=== PATIENT | female | born 1965 ===

== ENCOUNTER 2020-05-10 07:19 | Outpatient (REF) | payer BC, SELFPAY ==
[2020-05-10 11:13] LABS: MANUAL DIFF FLAG NO
[2020-05-10 11:26] LABS: Basophils Percent Auto 0.2 % (0-2); Eosinophils Absolute Auto 0.2 X10*3/uL (0.0-0.4); Eosinophils Percent Auto 2.9 % (0-4); Hematocrit 40.4 % (37-47); Hemoglobin 13.7 g/dl (12.0-16.0); Imm Gran Abs Auto 0.02 X10*3/uL (0.00-0.03); Imm Gran Pct Auto 0.3 % (0.0-0.4); Lymphocytes Absolute Auto 2.4 X10*3/uL (1.2-4.9); Lymphocytes Percent Auto 40.8 % (20-40); Mean Corpuscular HGB Conc 33.9 g/dl (31.0-35.0); Mean Corpuscular Hemoglobin 33.3 pg (27.0-33.0); Mean Corpuscular Volume 98.1 fL (80-98); Mean Platelet Volume 9.9 fL (9.4-12.3); Monocytes Absolute Auto 0.4 X10*3/uL (0.1-1.2); Monocytes Percent Auto 5.9 % (2-11); Neutrophils Percent Auto 49.9 % (45-73); Platelet Count 298 X10*3/uL (160-400); Red Blood Count 4.12 X10*6/uL (4.20-5.50); Red Cell Distribution Width 12.3 % (11.0-16.0); White Blood Count 5.9 X10*3/uL (4.8-10.8)
[2020-05-10 11:43] LABS: Estimated Average Glucose 91 mg/dL; Hemoglobin A1c % 4.8 %
[2020-05-10 11:49] LABS: Anion Gap 17 (12-20); Blood Urea Nitrogen 12 mg/dL (9-16); Carbon Dioxide 31 mmol/L (22-29); Chloride 92 mmol/L (96-108); Cholesterol 398 mg/dL; Estimated Glomerular Filt Rate > 60; Glucose Fasting 83 mg/dL (60-99); HDL Cholesterol 101 mg/dL; LDL Cholesterol Calculated 282 mg/dl; Sodium 136 mmol/L (135-145); Triglycerides 76 mg/dL
[2020-05-10 12:02] LABS: TSH reflex Free T4 1.18 mIU/mL (0.32-4.0)
== END 2020-05-10 07:20 | disposition home or self-care (01) ==
LOC: HO.HMGCLDS 07:19
PROVIDERS: PCP Internal Medicine; Visit Provider Internal Medicine
DX: E78.9 Disorder of lipoprotein metabolism, unspecified (principal); I10 Essential (primary) hypertension; R73.01 Impaired fasting glucose; R79.89 Other specified abnormal findings of blood chemistry; Z72.0 Tobacco use
CPT/HCPCS: 36415; 80048; 80061; 83036; 84443; 85025

== ENCOUNTER 2020-08-02 07:16 | Outpatient (REF) | payer BC, SELFPAY ==
[2020-08-02 11:21] LABS: Hematocrit 39.5 % (37-47); Hemoglobin 13.6 g/dl (12.0-16.0)
[2020-08-02 12:32] LABS: Alanine Aminotransferase 116 U/L (0-31); Albumin Level 4.9 g/dL (3.5-5.0); Alkaline Phosphatase 68 U/L (39-117); Anion Gap 15 (12-20); Aspartate Amino Transferase 92 U/L (5-31); Bilirubin Direct 0.2 mg/dL (0.0-0.5); Bilirubin Total 0.4 mg/dL (0.0-1.0); Blood Urea Nitrogen 12 mg/dL (9-16); Calcium 10.1 mg/dL (8.4-10.2); Carbon Dioxide 31 mmol/L (22-29); Chloride 95 mmol/L (96-108); Cholesterol 341 mg/dL; Estimated Glomerular Filt Rate > 60; Glucose Fasting 89 mg/dL (60-99); HDL Cholesterol 105 mg/dL; LDL Cholesterol Calculated 220 mg/dl; Potassium 3.2 mmol/L (3.3-5.1); Sodium 138 mmol/L (135-145); Total Protein 7.8 g/dL (6.5-8.0); Triglycerides 80 mg/dL
== END 2020-08-02 07:17 | disposition home or self-care (01) ==
LOC: HO.HMGCLDS 07:16
PROVIDERS: PCP Internal Medicine; Visit Provider Internal Medicine
DX: R79.89 Other specified abnormal findings of blood chemistry (principal); R73.01 Impaired fasting glucose; E78.9 Disorder of lipoprotein metabolism, unspecified; I10 Essential (primary) hypertension; Z72.0 Tobacco use
CPT/HCPCS: 36415; 80048; 80061; 80076; 85014; 85018

== ENCOUNTER 2020-08-17 07:36 | Outpatient (REF) | payer BC, SELFPAY ==
[2020-08-17 13:18] LABS: Alanine Aminotransferase 64 U/L (0-31); Albumin Level 4.6 g/dL (3.5-5.0); Alkaline Phosphatase 62 U/L (39-117); Anion Gap 12 (12-20); Aspartate Amino Transferase 32 U/L (5-31); Bilirubin Direct 0.2 mg/dL (0.0-0.5); Bilirubin Total 0.7 mg/dL (0.0-1.0); Carbon Dioxide 34 mmol/L (22-29); Chloride 97 mmol/L (96-108); Potassium 3.6 mmol/L (3.3-5.1); Sodium 139 mmol/L (135-145); Total Protein 7.2 g/dL (6.5-8.0)
== END 2020-08-17 07:37 | disposition home or self-care (01) ==
LOC: HO.HMGCLDS 07:36
PROVIDERS: PCP Internal Medicine; Visit Provider Internal Medicine
DX: R79.89 Other specified abnormal findings of blood chemistry (principal); E87.8 Other disorders of electrolyte and fluid balance, not elsewhere classified
CPT/HCPCS: 36415; 80051; 80076

== ENCOUNTER → 2020-09-10 10:02 | Outpatient (REF) | payer BC, SELFPAY ==
--- NOTE | 2020-09-10 10:04 | CA_ITS ---
Transthoracic Echocardiogram Patient (Last, First, Middle): Ita Zarate M Gender: Female Date of : 1965 Age: 55 Procedure Date: 09/10/2020 Procedure Type: Transthoracic Echocardiogram Location: OP Height: 157.48 cm Weight: 76.2 kg BSA: 1.77 m2 Heart Rate: bpm BP: 136 / 80 mmHg Non Cdl Driver: NARENDRA Referring MD: Johanny Cao MD Symptoms: R01.1 - Cardiac murmur, unspecified Study Quality: Fair/contrast ECG Rhythm: Sinus Conclusions: - The left ventricular systolic function is hyperdynamic. The visually estimated ejection fraction is >70%. - There is mild mitral valve regurgitation. Findings Procedure Information Contrast agent, definity, is being given per protocol without apparent complications. Left Ventricle Normal left ventricular cavity size. There is mildly increased left ventricular wall thickness. The left ventricular systolic function is hyperdynamic. The visually estimated ejection fraction is >70%. There is no evidence of regional wall motion abnormalities. Diastolic function is normal for age. Small gradient in LVOT that increases with Valsalva, but no evidence of obstruction. Right Ventricle Normal right ventricular cavity size and systolic function. Atria The left atrium is mildly dilated. The right atrium is normal in size. Aortic Valve There is a normal trileaflet aortic valve. There is no aortic valve stenosis. There is no aortic valve regurgitation. Mitral Valve The mitral valve appears normal. There is mild mitral valve regurgitation. There is no mitral valve stenosis. Pulmonic Valve The pulmonic valve was not well visualized. Tricuspid Valve Normal tricuspid valve structure. There is trace tricuspid valve regurgitation. The pulmonary artery systolic pressure is normal. Great Vessels The aortic annulus, sinuses of valsalva, asc aorta, and aortic arch are normal in size. Venous The inferior vena cava is normal in size and collapses greater than 50% with inspiration. Pericardium/Pleural There is no evidence of pericardial effusion. Prior Study Comparison No prior study available for comparison. Measurements 2D Linear Measurements IVSd: 1.14 0.6-0.9/0.6-1.0 cm LVIDd: 3.68 3.9-5.3/4.2-5.9 cm LVIDd Index: 2.08 2.4-3.2/2.2-3.1 cm/m2 LVIDs: 2.63 2.0-3.6 cm LVPWd: 1.14 0.7-1.1 cm Ao Root: 3.20 2.1-3.5 cm LA Diam: 3.80 2.7-3.8/3.0-4.0 cm LAIDs Index: 2.15 1.5-2.3 cm/m2 LV Mass: 168.35 67-162/88-224 g LV Mass Index: 95.11 43-95/49-115 g/m2 LVOT Diam: 2.00 3.0+(-)1.3 cm 2D Systolic Function EF 4C: 68.40 >55% EF 2C: 69.70 >55% EF BiP: 67.40 >55% Mitral Valve MV Pk E: 0.88 MV PK A: 0.92 MV Decel Time: 232.00 E/A: 1.00 E'Lateral: 8.70 E'Medial: 7.25 E/E' Med: 12.10 E/E' Lat: 10.10 PHT: 68.00 MVA PHT: 3.24 Decel Hood: 3.78 Aortic Valve AoV Pk Senthil: 1.60 AoV Mn Senthil: 1.10 AoV VTI: 0.32 AoV Pk Grad: 10.00 Aov Mn Grad: 6.00 EDMUNDO Cont.VTI: 3.65 LVOT LVOT Pk Senthil: 1.47 LVOT Mn Senthil: 1.13 LVOT VTI: 0.37 LVOT Pk Grad: 9.00 LVOT Mn Grad: 6.00 LVOT Diam: 2.00 LVOT Area: 3.14 Diastolic Function MV Pk E: 0.88 MV Pk A: 0.92 E/A: 1.00 E'Medial: 7.25 E/E' Med: 12.10 E' Laterial: 8.70 E/E' Lat: 10.10 Tricuspid Valve TR Pk Senthil: 2.43 TR Pk Grad: 24.00 RA Press: 3.00 RVSP: 27.00 Great Vessels Aorta Ao Root-2D: 3.20 2.0-3.7 cm Ao Asc: 3.00 2.1-3.4 cm Ao Arch: 2.80 Updated in Other Vendor System with Status of Final Dev Peguero MD electronically signed on 09/11/2020 10:31:07 AM with status of Final
== END ==
LOC: HO.CARD 10:02
PROVIDERS: Visit Provider Internal Medicine
DX: R01.1 Cardiac murmur, unspecified (principal)
CPT/HCPCS: 93306; Q9957

== ENCOUNTER → 2021-02-21 14:23 | Outpatient (BNVA) | payer BC, SELFPAY | PROVIDERS: PCP Internal Medicine; Referring Provider Internal Medicine; Visit Provider Internal Medicine | DX: R07.2 Precordial pain (principal); R00.2 Palpitations; R09.89 Other specified symptoms and signs involving the circulatory and respiratory systems; I10 Essential (primary) hypertension | CPT/HCPCS: 93005 ==

== ENCOUNTER → 2021-04-10 07:36 | Outpatient (REF) | payer BC, SELFPAY ==
--- NOTE | ~2021-04-10 | NM_ITS ---
Myocardial perfusion study Indication: The cardial chest pain to evaluate for myocardial ischemia Technique: The patient was brought in for a Lexiscan perfusion study on 04/10/2021. Patient performed low-level exercise and was injected 0.4 mg of Lexiscan intravenously. Within a minute of injection, 25 mCi of sestamibi was given intravenously. Images were obtained using the SPECT gamma camera interlaced with the gating device. Images were obtained in supine position. Resting perfusion study was performed on 04/11/2021. Patient was administered 25 mCi of sestamibi intravenously at rest. Images were then obtained in supine position. Images obtained with and without CT attenuation. Total DLP 113 mGy-cm. Images were processed with the software and compared side to side in short axis, horizontal long axis and vertical long axis views. Findings: The stress perfusion study showed nonattenuated images show mildly reduced uptake in the basal inferior wall of the LV myocardium. Remainder of the LV myocardium is normally perfused. Attenuation corrected images show mildly reduced uptake in the apex of the LV myocardium.. The gated study shows normal LV systolic function with calculated LVEF of greater than 70 %. LV cavity is normal in size. The gated study shows normal systolic wall thickening and contraction of segments. Resting study shows no change in perfusion pattern compared to stress perfusion study. Gating at rest reveals normal systolic wall motion with ejection fraction at 70%. The findings are consistent with no reversible defect suggestive of ischemia. Likely normal myocardial perfusion. NM/NM cardiolite stress test Impression: 1. Myocardial perfusion imaging study shows likely normal myocardial perfusion 2. Gated LVEF is 70% 3. Transient ischemic dilatation not present EKG is nondiagnostic for ischemia
--- NOTE | 2021-04-10 07:40 | CA_ITS ---
Acquisition Time: 2021-04-10 07:56:49 Total Exercise Time: 00:07:31 Test Indications: CP, PALPITATIONS Medications: SEE CHART Protocol: ANEESH Max HR: 153 BPM 93% of Pred: 164 BPM Max BP: 142/080 mmHG Max Work Load: 9.3 METS Exercise stress test with exercise 7 min 31 sec of Aneesh protocol, with mild sob, no chest discomfort, with occassional PACs in stage 3, with normotensive response to exercise, with nondiagnostic EKG for ischemia due to baseline abnormality. Nuclear images pending. Test reviewed with Dr Peguero. Referred By: Dev Peguero Overread By: JOSE ROSAS
== END ==
LOC: HO.CARD 07:36
PROVIDERS: PCP Internal Medicine; Visit Provider Internal Medicine
DX: R07.2 Precordial pain (principal)
CPT/HCPCS: 78452; 93017; A9500

== ENCOUNTER → 2021-04-11 14:43 | Outpatient (REF) | payer BC, SELFPAY ==
--- NOTE | 2021-04-11 14:47 | HM_ITS ---
Total monitoring time 3 days and 14 hours. Underlying rhythm is sinus. Minimum rate 62/Min. Maximum 152/Min. Average 95/Min. No atrial fibrillation or flutter or pauses. Very rare supraventricular ectopy; longest run being 4 beats. Very rare ventricular ectopy with minimal burden. No patient events. MTDD
== END ==
LOC: HO.CARD 14:43
PROVIDERS: PCP Internal Medicine; Visit Provider Internal Medicine
DX: R00.2 Palpitations (principal)
CPT/HCPCS: 93242

== ENCOUNTER 2021-05-11 06:53 | Outpatient (REF) | payer BC, SELFPAY ==
--- NOTE | ~2021-05-11 | XR_ITS ---
EXAMINATION: XR FINGER, LEFT CLINICAL INFORMATION: Injury COMPARISON: None TECHNIQUE: Three views of the left second finger. FINDINGS: There is a fracture of the distal tuft of the left second finger. No other fracture is seen. The joint spaces are normal. Soft tissues are normal. XR/XR finger LT min 2V IMPRESSION: Fracture of the distal tuft of the left second finger.
[2021-05-11 11:17] LABS: Estimated Average Glucose 97 mg/dL
[2021-05-11 11:23] LABS: Alanine Aminotransferase 40 U/L (0-31); Albumin Level 4.7 g/dL (3.5-5.0); Alkaline Phosphatase 77 U/L (39-117); Anion Gap 14 (12-20); Aspartate Amino Transferase 32 U/L (5-31); Bilirubin Total 0.7 mg/dL (0.0-1.0); Blood Urea Nitrogen 18 mg/dL (9-16); Calcium 10.4 mg/dL (8.4-10.2); Carbon Dioxide 33 mmol/L (22-29); Chloride 98 mmol/L (96-108); Cholesterol 320 mg/dL; Estimated Glomerular Filt Rate > 60; Glucose Fasting 96 mg/dL (60-99); HDL Cholesterol 80 mg/dL; LDL Cholesterol Calculated 221 mg/dl; Potassium 4.2 mmol/L (3.3-5.1); Sodium 141 mmol/L (135-145); Total Protein 7.5 g/dL (6.5-8.0); Triglycerides 99 mg/dL
== END 2021-05-11 06:54 | disposition home or self-care (01) ==
LOC: HO.HMGCLDS 06:53
PROVIDERS: PCP Internal Medicine; Visit Provider Internal Medicine
DX: S69.92XA Unspecified injury of left wrist, hand and finger(s), initial encounter (principal); E78.9 Disorder of lipoprotein metabolism, unspecified; F17.200 Nicotine dependence, unspecified, uncomplicated; I10 Essential (primary) hypertension; I34.0 Nonrheumatic mitral (valve) insufficiency; R00.2 Palpitations; R73.01 Impaired fasting glucose; E66.09 Other obesity due to excess calories
CPT/HCPCS: 36415; 73140; 80053; 80061; 83036

== ENCOUNTER 2021-06-18 09:19 | Outpatient (REF) | payer BC, SELFPAY ==
--- NOTE | ~2021-06-18 | XR_ITS ---
EXAMINATION: XR HAND, LEFT CLINICAL INFORMATION: Pain left hand COMPARISON: None TECHNIQUE: PA, lateral, and oblique views of the left hand. FINDINGS: There is small fracture phalangeal tuft second digit with mild soft tissue swelling. There is minimal displacement. No additional fractures seen. Rest of the soft tissues are normal. XR/XR hand LT min 3V IMPRESSION: Small minimally displaced fracture phalangeal tuft second digit with mild soft tissue swelling.
== END 2021-06-18 09:20 | disposition home or self-care (01) ==
LOC: HO.HOSX 09:19
PROVIDERS: Visit Provider Orthopaedic Surgery
DX: S62.631D Displaced fracture of distal phalanx of left index finger, subsequent encounter for fracture with routine healing (principal); S69.92XD Unspecified injury of left wrist, hand and finger(s), subsequent encounter; X58.XXXD Exposure to other specified factors, subsequent encounter; Z87.891 Personal history of nicotine dependence
CPT/HCPCS: 73130

== ENCOUNTER 2021-12-21 06:37 | Outpatient (REF) | payer BC, SELFPAY ==
[2021-12-21 11:16] LABS: Estimated Average Glucose 97 mg/dL
[2021-12-21 11:36] LABS: Alanine Aminotransferase 118 U/L (0-31); Albumin Level 4.7 g/dL (3.5-5.0); Alkaline Phosphatase 98 U/L (39-117); Anion Gap 17 (12-20); Aspartate Amino Transferase 109 U/L (5-31); Bilirubin Total 0.3 mg/dL (0.0-1.0); Blood Urea Nitrogen 10 mg/dL (9-16); Carbon Dioxide 28 mmol/L (22-29); Chloride 89 mmol/L (96-108); Estimated Glomerular Filt Rate > 60; Glucose Fasting 95 mg/dL (60-99); Lipase 21 U/L (8-78); Potassium 3.2 mmol/L (3.3-5.1); Sodium 131 mmol/L (135-145); Total Protein 7.6 g/dL (6.5-8.0)
[2021-12-21 11:39] LABS: TSH reflex Free T4 1.18 uIU/mL (0.32-4.0)
== END 2021-12-21 06:38 | disposition home or self-care (01) ==
LOC: HO.HMGCLDS 06:37
PROVIDERS: PCP Internal Medicine; Visit Provider Internal Medicine
DX: I10 Essential (primary) hypertension (principal); R73.01 Impaired fasting glucose; R79.89 Other specified abnormal findings of blood chemistry; E66.09 Other obesity due to excess calories; E78.9 Disorder of lipoprotein metabolism, unspecified
CPT/HCPCS: 36415; 80053; 83036; 83690; 84443

== ENCOUNTER 2022-02-24 06:40 | Outpatient (REF) | payer BC, SELFPAY ==
[2022-02-24 11:41] LABS: Estimated Average Glucose 103 mg/dL; Hemoglobin A1c % 5.2 %
[2022-02-24 12:02] LABS: Alanine Aminotransferase 30 U/L (0-31); Albumin Level 4.2 g/dL (3.5-5.0); Alkaline Phosphatase 66 U/L (39-117); Anion Gap 14 (12-20); Aspartate Amino Transferase 24 U/L (5-31); Bilirubin Total 0.3 mg/dL (0.0-1.0); Blood Urea Nitrogen 16 mg/dL (9-16); Calcium 9.6 mg/dL (8.4-10.2); Carbon Dioxide 29 mmol/L (22-29); Chloride 102 mmol/L (96-108); Estimated Glomerular Filt Rate > 60; Glucose Random 107 mg/dL (60-115); Potassium 3.6 mmol/L (3.3-5.1); Sodium 141 mmol/L (135-145); Total Protein 6.6 g/dL (6.5-8.0)
== END 2022-02-24 06:41 | disposition home or self-care (01) ==
LOC: HO.HMGCLDS 06:40
PROVIDERS: PCP Internal Medicine; Visit Provider Internal Medicine
DX: E78.9 Disorder of lipoprotein metabolism, unspecified (principal); R73.01 Impaired fasting glucose; I10 Essential (primary) hypertension; R79.89 Other specified abnormal findings of blood chemistry; E87.8 Other disorders of electrolyte and fluid balance, not elsewhere classified
CPT/HCPCS: 36415; 80053; 83036

== ENCOUNTER 2022-09-22 06:39 | Outpatient (REF) | payer BC, SELFPAY ==
[2022-09-22 11:46] LABS: Estimated Average Glucose 97 mg/dL
[2022-09-22 12:07] LABS: Alanine Aminotransferase 36 U/L (0-31); Albumin Level 4.6 g/dL (3.5-5.0); Alkaline Phosphatase 94 U/L (39-117); Anion Gap 14 (12-20); Aspartate Amino Transferase 29 U/L (5-31); Bilirubin Total 0.6 mg/dL (0.0-1.0); Blood Urea Nitrogen 14 mg/dL (9-16); Calcium 9.9 mg/dL (8.4-10.2); Carbon Dioxide 31 mmol/L (22-29); Chloride 97 mmol/L (96-108); Estimated Glomerular Filt Rate > 60; Glucose Random 96 mg/dL (60-115); Potassium 3.5 mmol/L (3.3-5.1); Sodium 138 mmol/L (135-145); Total Protein 7.2 g/dL (6.5-8.0)
== END 2022-09-22 06:40 | disposition home or self-care (01) ==
LOC: HO.HMGCLDS 06:39
PROVIDERS: PCP Internal Medicine; Visit Provider Internal Medicine
DX: E78.9 Disorder of lipoprotein metabolism, unspecified (principal); R73.01 Impaired fasting glucose; R79.89 Other specified abnormal findings of blood chemistry; I10 Essential (primary) hypertension
CPT/HCPCS: 36415; 80053; 83036

== ENCOUNTER 2023-02-04 15:54 | Outpatient (AMB) | payer BC, SELFPAY ==
--- NOTE | 2023-02-04 15:56 | MHC.PC.OV ---
Vital Signs 02/04/23 15:57 Height 5 ft 2 in Weight 177 lb 8 oz BMI 32.5 BP 144/72 H Blood Pressure Location Rt brachial Position Sitting Pulse 94 Pulse Source Pulse Oximeter Pulse Oximetry (%) 97 Oxygen Delivery Method Room Air Intake Visit Reasons: 4 month follow up Allergies No Known Allergies [No Known Allergies*] Allergy (Verified 10/01/22 15:52) Medication List - Last Reconciled 02/04/23 by Johanny Cao MD amlodipine 5 mg PO DAILY 90 days lisinopril-hydrochlorothiazide 20-25 mg 1 tab PO DAILY 90 days Tobacco use date assessed: 02/04/23 Dental Screening Dental Screen Date: 02/04/23 Did you have a dental visit in the last 12 months?: No Did you have a dental problem in the last 6 months where you did not have access to dental care?: No Was dental information given to patient?: No HPI 4 month follow up HPI Details Patient is a 57-year-old female came in today for follow-up appointment due for labs ETOH score 4, once again advice pt to cut down Offers no new complaints taking all her medications no side effects Blood pressure is well controlled, she is to continue lisinopril hydrochlorothiazide 20-25 mg , and amlodipine 5 mg She also take atorvastatin 40 mg for lipid control LFT stable Follow-up 4 months [facility] Medical History Heart murmur Hypertension, essential Impaired fasting blood sugar LFT elevation Lipid disorder Surgical History No pertinent past surgical history Family History Father HTN (hypertension) Brain aneurysm Mother HTN (hypertension) COPD (chronic obstructive pulmonary disease) Maternal Grandfather No problems noted. Maternal Grandmother No problems noted. Paternal Grandfather No problems noted. Paternal Grandmother Kidney failure Social History Housing: Condominium Alcohol intake: current Patient Tobacco Use Status: Former Tobacco user (quit 2020) Cigarette Packs Per Day: 1 Cigarettes Per Day: 10 e-Cigarette/Vaping Use: Currently Using service: No Current occupational status: employed Cognitive needs: No Hearing needs: No Vision needs: Yes Questionnaire PHQ-9 Over the last 2 weeks, how often have you been bothered by any of the following problems? 1. Little interest or pleasure in doing things: not at all 2. Feeling down, depressed, or hopeless: not at all 3. Trouble falling or staying asleep, or sleeping too much: not at all 4. Feeling tired or having little energy: not at all 5. Poor appetite or overeating: not at all 6. Feeling bad about yourself - or that you are a failure or have let yourself or your family down: not at all 7. Trouble concentrating on things, such as reading the newspaper or watching television: not at all 8. Moving or speaking so slowly that other people could have noticed. Or the opposite - being so fidgety or restless that you have been moving around a lot more than usual: not at all 9. Thoughts that you would be better off or of hurting yourself in some way: not at all Total score: 0 Depression Screening Interpretation: Negative 41116 - PHQ-9 Billing: Yes Source: Developed by Drs. Jake Espinoza, Karma Shaw, Sanhtosh Bunch and colleagues, with an educational kevin from [employer]. Thrive Questionnaire Date Thrive assessed: 01/08/21 AUDIT C Alcohol Use Questionnaire (AUDIT-C) 1. How often do you have a drink containing alcohol?: 2-3 times a week 2. How many drinks containing alcohol do you have on a typical day when you are drinking?: 3 or 4 3. How often do you have six or more drinks on one occasion?: Never Total Score: 4 Score Reviewed/Action Taken: Yes Review of Systems Const Denies chills and Denies fever(s) ENT Denies epistaxis and Denies nasal discharge Card Denies chest pain Resp Denies chest congestion, Denies cough and Denies hemoptysis GI Denies diarrhea and Denies nausea Skin/Breast Denies rash Neuro Reports no additional complaints Psych Reports no additional complaints Endo Reports no additional complaints Physical exam (Primary Care) Tobacco/Smoking Status: Tobacco use Status Tobacco use date assessed 06/18/22 10/01/22 15:51 Patient Tobacco Use Status Former Tobacco user 05/03/23 15:57 e-Cigarette/Vaping Use Currently Using 10/01/22 15:57 Depression Screening Interpretation: Negative Thrive Assessment: Date of Thrive Assessment Date Thrive assessed 01/08/21 10/01/22 15:51 Const General: cooperative, comfortable and no acute distress Orientation/consciousness: patient oriented x3 HENMT Head: Yes normocephalic Eyes General: appearance normal, both eyes and all related structures Neck Neck: Yes supple Resp Effort & Inspection: normal respiratory effort, no cough and no stridor Cardio Rhythm: regular rhythm Heart sounds: S1 normal heart sound present and S2 normal heart sound present Skin General skin exam: turgor normal Neuro General: patient oriented x3, tone normal and moves all extremities Extrem Right lower extremity: no edema Left lower extremity: no edema Assessment and Plan Assessment & Plan (1) Essential hypertension: Code(s): I10 - Essential (primary) hypertension (2) Lipid disorder: Code(s): E78.9 - Disorder of lipoprotein metabolism, unspecified (3) Impaired fasting blood sugar: Code(s): R73.01 - Impaired fasting glucose (4) LFT elevation: Code(s): R79.89 - Other specified abnormal findings of blood chemistry Plan Patient is a 57-year-old female came in today for follow-up appointment due for labs ETOH score 4, once again advice pt to cut down Offers no new complaints taking all her medications no side effects Blood pressure is well controlled, she is to continue lisinopril hydrochlorothiazide 20-25 mg , and amlodipine 5 mg She also take atorvastatin 40 mg for lipid control LFT stable IFS , diet control, we are monitoring it Follow-up 4 months Orders: Orders Comprehensive Met. Panel Today I10 - Essential (primary) hypertension Complete Blood Count Auto Diff Today I10 - Essential (primary) hypertension Hemoglobin A1c Today R73.01 - Impaired fasting glucose Coding Level of Care Code Est Pt Level 3 (93972) Diagnoses Essential hypertension I10 Lipid disorder E78.9 Impaired fasting blood sugar R73.01 LFT elevation R79.89
[2023-02-04 15:57] VITALS: BP 144/72; PULSE 94; O2SAT 97; BMI 32.5
== END 2023-02-04 16:14 | disposition home or self-care (01) ==
PROVIDERS: Visit Provider Internal Medicine
DX: I10 Essential (primary) hypertension (principal); E78.9 Disorder of lipoprotein metabolism, unspecified; R73.01 Impaired fasting glucose; R79.89 Other specified abnormal findings of blood chemistry
CPT/HCPCS: 99213

== ENCOUNTER 2023-06-12 14:47 | Outpatient (AMB) | payer BC, SELFPAY ==
[2023-06-12 14:53] VITALS: BP 132/70; PULSE 110; O2SAT 97; BMI 32.7
--- NOTE | 2023-06-12 14:53 | MHC.PC.OV ---
Vital Signs 06/12/23 14:53 Height 5 ft 2 in Weight 179 lb BMI 32.7 BP 132/70 Blood Pressure Location Lt brachial Position Sitting Pulse 110 H Pulse Source Pulse Oximeter Pulse Oximetry (%) 97 Oxygen Delivery Method Room Air Intake Visit Reasons: 4 month fu Allergies No Known Allergies [No Known Allergies*] Allergy (Verified 06/12/23 14:55) Medication List - Last Reconciled 06/12/23 by Johanny Cao MD amlodipine 5 mg PO DAILY 90 days lisinopril-hydrochlorothiazide 20-25 mg 1 tab PO DAILY 90 days Tobacco use date assessed: 06/12/23 Dental Screening Dental Screen Date: 06/12/23 Did you have a dental visit in the last 12 months?: Yes Did you have a dental problem in the last 6 months where you did not have access to dental care?: No Was dental information given to patient?: Patient has dentist HPI 4 month fu HPI Details Patient is a 58-year-old female came in today for follow-up appointment due for labs, patient forgot to do labs she will have them done today Offers no new complaints taking all her medications no side effects Blood pressure is well controlled, she is to continue lisinopril hydrochlorothiazide 20-25 mg , and amlodipine 5 mg She also take atorvastatin 40 mg for lipid control LFT stable IFS , diet control, we are monitoring it Follow-up 4 months [facility] Medical History LFT elevation Heart murmur Impaired fasting blood sugar Lipid disorder Hypertension, essential Surgical History No pertinent past surgical history Family History Father HTN (hypertension) Brain aneurysm Mother HTN (hypertension) COPD (chronic obstructive pulmonary disease) Maternal Grandfather No problems noted. Maternal Grandmother No problems noted. Paternal Grandfather No problems noted. Paternal Grandmother Kidney failure [facility] Alcohol intake: current Patient Tobacco Use Status: Former Tobacco user (quit 2020) Cigarette Packs Per Day: 1 Cigarettes Per Day: 10 e-Cigarette/Vaping Use: Currently Using service: No Current occupational status: employed Cognitive needs: No Hearing needs: No Vision needs: Yes Questionnaire Thrive Questionnaire Date Thrive assessed: 01/08/21 AUDIT C Alcohol Use Questionnaire (AUDIT-C) 1. How often do you have a drink containing alcohol?: 2-3 times a week 2. How many drinks containing alcohol do you have on a typical day when you are drinking?: 3 or 4 3. How often do you have six or more drinks on one occasion?: Never Total Score: 4 Score Reviewed/Action Taken: Yes Review of Systems Const Denies chills and Denies fever(s) ENT Denies epistaxis and Denies nasal discharge Card Denies chest pain Resp Denies chest congestion, Denies cough and Denies hemoptysis GI Denies diarrhea and Denies nausea Skin/Breast Denies rash Neuro Reports no additional complaints Psych Reports no additional complaints Endo Reports no additional complaints Physical exam (Primary Care) Vital Signs: Last Vital Signs Pulse 110 H 06/12/23 14:53 BP 132/70 06/12/23 14:53 Pulse Ox 97 06/12/23 14:53 Oxygen Delivery Method Room Air 06/12/23 14:53 BMI result Body Mass Index 32.7 Tobacco/Smoking Status: Tobacco use Status Tobacco use date assessed 06/12/23 06/12/23 14:56 Patient Tobacco Use Status Former Tobacco user (quit 06/12/23 14:56 2020) e-Cigarette/Vaping Use Currently Using 06/12/23 14:56 Thrive Assessment: Date of Thrive Assessment Date Thrive assessed 01/08/21 06/12/23 14:56 Const General: cooperative, comfortable and no acute distress Orientation/consciousness: patient oriented x3 HENMT Head: Yes normocephalic Eyes General: appearance normal, both eyes and all related structures Neck Neck: Yes supple Resp Effort & Inspection: normal respiratory effort, no cough and no stridor Cardio Rhythm: regular rhythm Heart sounds: S1 normal heart sound present and S2 normal heart sound present Skin General skin exam: turgor normal Neuro General: patient oriented x3, tone normal and moves all extremities Extrem Right lower extremity: no edema Left lower extremity: no edema Assessment and Plan Assessment & Plan (1) Essential hypertension: Code(s): I10 - Essential (primary) hypertension (2) Lipid disorder: Code(s): E78.9 - Disorder of lipoprotein metabolism, unspecified (3) Impaired fasting blood sugar: Code(s): R73.01 - Impaired fasting glucose (4) LFT elevation: Code(s): R79.89 - Other specified abnormal findings of blood chemistry Plan Patient is a 58-year-old female came in today for follow-up appointment due for labs, patient forgot to do labs she will have them done today Offers no new complaints taking all her medications no side effects Blood pressure is well controlled, she is to continue lisinopril hydrochlorothiazide 20-25 mg , and amlodipine 5 mg She also take atorvastatin 40 mg for lipid control LFT stable IFS , diet control, we are monitoring it Follow-up 4 months Coding Level of Care Code Est Pt Level 3 (79478) Diagnoses Essential hypertension I10 Lipid disorder E78.9 Impaired fasting blood sugar R73.01 LFT elevation R79.89
== END 2023-06-12 15:17 | disposition home or self-care (01) ==
PROVIDERS: PCP Internal Medicine; Visit Provider Internal Medicine
DX: I10 Essential (primary) hypertension (principal); E78.9 Disorder of lipoprotein metabolism, unspecified; R73.01 Impaired fasting glucose; R79.89 Other specified abnormal findings of blood chemistry
CPT/HCPCS: 99213

== ENCOUNTER 2023-06-12 15:19 | Outpatient (REF) | payer BC, SELFPAY ==
[2023-06-12 16:07] LABS: MANUAL DIFF FLAG NO
[2023-06-12 16:22] LABS: Basophils Percent Auto 0.4 % (0-2); Eosinophils Absolute Auto 0.2 X10*3/uL (0.0-0.4); Hematocrit 39.5 % (37.0-47.0); Hemoglobin 13.3 g/dl (12.0-16.0); Imm Gran Abs Auto 0.01 X10*3/uL (0.00-0.03); Imm Gran Pct Auto 0.1 % (0.0-0.4); Lymphocytes Absolute Auto 2.5 X10*3/uL (1.2-4.9); Lymphocytes Percent Auto 30.2 % (20-40); Mean Corpuscular HGB Conc 33.7 g/dl (31.0-35.0); Mean Corpuscular Hemoglobin 31.3 pg (27.0-33.0); Mean Corpuscular Volume 92.9 fL (80.0-98.0); Mean Platelet Volume 9.4 fL (9.4-12.3); Monocytes Absolute Auto 0.4 X10*3/uL (0.1-1.2); Monocytes Percent Auto 5.4 % (2-11); Neutrophils Absolute Auto 5.1 x10*3/uL (2.0-8.3); Neutrophils Percent Auto 61.9 % (45-73); Platelet Count 291 X10*3/uL (160-400); Red Blood Count 4.25 X10*6/uL (4.20-5.50); Red Cell Distribution Width 12.3 % (11.0-16.0); White Blood Count 8.2 X10*3/uL (4.8-10.8)
[2023-06-12 16:29] LABS: Estimated Average Glucose 97 mg/dL
[2023-06-12 18:35] LABS: Alanine Aminotransferase 51 U/L (0-31); Albumin Level 4.6 g/dL (3.5-5.0); Alkaline Phosphatase 91 U/L (39-117); Anion Gap 13 (12-20); Aspartate Amino Transferase 31 U/L (5-31); Bilirubin Total 0.2 mg/dL (0.0-1.0); Blood Urea Nitrogen 18 mg/dL (9-16); Calcium 10.1 mg/dL (8.4-10.2); Carbon Dioxide 30 mmol/L (22-29); Chloride 102 mmol/L (96-108); Estimated Glomerular Filt Rate > 60; Glucose Random 86 mg/dL (60-115); Potassium 3.6 mmol/L (3.3-5.1); Sodium 141 mmol/L (135-145); Total Protein 7.7 g/dL (6.5-8.0)
== END 2023-06-12 15:20 | disposition home or self-care (01) ==
LOC: HO.HMGCLDS 15:19
PROVIDERS: PCP Internal Medicine; Visit Provider Internal Medicine
DX: I10 Essential (primary) hypertension (principal); R73.01 Impaired fasting glucose
CPT/HCPCS: 36415; 80053; 83036; 85025

== ENCOUNTER 2024-02-17 15:02 | Outpatient (AMB) | payer BC, SELFPAY ==
--- NOTE | 2024-02-17 15:30 | MHC.PC.OV ---
Vital Signs 02/17/24 15:31 Height 5 ft 2 in Weight 174 lb BMI 31.8 BP 138/90 H Blood Pressure Location Rt brachial Position Sitting Pulse 77 Pulse Source Pulse Oximeter Pulse Oximetry (%) 98 Oxygen Delivery Method Room Air Intake Visit Reasons: PE - see comments Allergies No Known Allergies [No Known Allergies*] Allergy (Verified 02/17/24 15:32) Medication List - Last Reconciled 02/17/24 by Johanny Cao MD amlodipine 5 mg PO DAILY 90 days lisinopril-hydrochlorothiazide 20-25 mg 1 tab PO DAILY 90 days Tobacco use date assessed: 06/12/23 Dental Screening Dental Screen Date: 06/12/23 HPI PE - see comments HPI Details Patient is a 58-year-old female came in for physical exam Blood pressure is slightly elevated, however at home it is running around 120 systolic patient tells me She is taking both of her medication regularly and tolerating them She has developed pruritus for the past few days around her waist and arms Patient also complaining of slight nasal congestion for the past few days No nausea vomiting abdominal pain I have sent a hydroxyzine to be taken at night If rash gets worse patient is to let me know Lab order placed to be done fasting She is trying to lose weight and has lost some She declined to do mammogram, Pap smear or colonoscopy Patient will return in 6 months for follow-up appointment, labs are needed every 6 months. [facility] Medical History LFT elevation Heart murmur Impaired fasting blood sugar Lipid disorder Hypertension, essential Surgical History No pertinent past surgical history Family History Father HTN (hypertension) Brain aneurysm Mother HTN (hypertension) COPD (chronic obstructive pulmonary disease) Maternal Grandfather No problems noted. Maternal Grandmother No problems noted. Paternal Grandfather No problems noted. Paternal Grandmother Kidney failure Social [facility] Alcohol intake: current Patient Tobacco Use Status: Former Tobacco user (quit 2020) Cigarette Packs Per Day: 1 Cigarettes Per Day: 10 e-Cigarette/Vaping Use: Currently Using service: No Current occupational status: employed Cognitive needs: No Hearing needs: No Vision needs: Yes Questionnaire PHQ-9 Over the last 2 weeks, how often have you been bothered by any of the following problems? 86323 - PHQ-9 Billing: Patient declined-do not bill Source: Developed by Drs. Jake Espinoza, Karma Shaw, Santhosh Bunch and colleagues, with an educational kevin from [employer]. Thrive Questionnaire Date Thrive assessed: 01/08/21 I am a: Patient What is your living situation today?: I choose not to answer this question Within the past 12 months, did the food you bought not last and you didn't have the money to get more?: I choose not to answer this question Within the past 12 months, did you worry whether your food would run out before you got money to buy more?: I choose not to answer this question Do you have trouble paying for medicines?: I choose not to answer this question Do you have trouble getting transportation to medical appointments?: I choose not to answer this question Do you have trouble paying your heating and electricity bill?: I choose not to answer this question Do you have trouble taking care of your child, family member or friend?: I choose not to answer this question Do you have trouble with day-to-day activities such as bathing, preparing meals, shopping, managing finances, etc.?: I choose not to answer this question Are you interested in more education?: I choose not to answer this question Please select the resources that you would like help with: None Currently or been in a relationship where the following occur: I choose not to answer THRIVE Score: 0 AUDIT C Alcohol Use Questionnaire (AUDIT-C) 1. How often do you have a drink containing alcohol?: 2-4 times a month 2. How many drinks containing alcohol do you have on a typical day when you are drinking?: 1 or 2 3. How often do you have six or more drinks on one occasion?: Never Total Score: 2 Score Reviewed/Action Taken: No EULA-7 AMB Questionnaire EULA-7 Date EULA - 7 assessed: 02/17/24 Feeling nervous, anxious, or on edge: 0 = Not at all Not being able to stop or control worryin = Not at all Worrying too much about different things: 0 = Not at all Trouble relaxin = Not at all Being so restless that it is hard to sit still: 0 = Not at all Becoming easily annoyed or irritable: 0 = Not at all Feeling afraid as if something awful might happen: 0 = Not at all Total EULA-7 score (0-4 normal; 5-9 mild; 10-14 moderate; 15-21 severe): 0 Source: Developed by Drs. Jake Espinoza, Karma Shaw, Santhosh Bunch and colleagues, with an educational kevin from [employer]. EULA-7 Assessment Billing EULA-7 Assessment Tool: EULA-7 Assessment 21240 Review of Systems Const Denies chills, Denies fever(s) and Denies headache(s) Eyes Denies blurry vision ENT Denies headache(s), Denies nasal discharge, Denies nasal obstruction, Denies odynophagia and Denies sinus pain Card Denies chest pain at rest and Denies chest pain with activity Resp Denies cough and Denies hemoptysis GI Denies diarrhea, Denies odynophagia, Denies vomiting and Denies hematemesis Reports as per HPI Musc Denies abnormal gait Skin/Breast Reports as per HPI Neuro Denies Neuro-related abnormal movements, Denies Abnormal speech present, Denies abnormal gait, Denies headache(s) and Denies Sensory deficit (Neuro) Psych Denies mood swings and Denies paranoia Endo Reports as per HPI Bill/Lymph Reports as per HPI Aller/Immun Reports as per HPI Physical exam (Primary Care) Vital Signs: Last Vital Signs Pulse 77 02/17/24 15:31 BP 138/90 H 02/17/24 15:31 Pulse Ox 98 02/17/24 15:31 Oxygen Delivery Method Room Air 02/17/24 15:31 BMI result Body Mass Index 31.8 Tobacco/Smoking Status: Tobacco use Status Tobacco use date assessed 06/12/23 02/17/24 15:34 Patient Tobacco Use Status Former Tobacco user (quit 02/17/24 15:34 2020) e-Cigarette/Vaping Use Currently Using 02/17/24 15:34 Thrive Assessment: Date of Thrive Assessment Date Thrive assessed 01/08/21 02/17/24 15:34 Currently or been in a relationship where the following occur: I choose not to answer Const General: cooperative, comfortable and no acute distress Orientation/consciousness: patient oriented x3 HENMT Head: Yes normocephalic and Yes atraumatic Eyes General: appearance normal, both eyes and all related structures Pupils: Equal, round and reactive pupils present EOM: EOMs intact bilaterally Neck Neck: Yes supple and No lymphadenopathy Thyroid: Thyroid normal Lymphatic: no lymphadenopathy noted Chest Breast/axilla palpation: normal palpation of the breasts Resp Effort & Inspection: normal respiratory effort and able to speak in complete sentences Auscultation: clear to auscultation bilaterally Cardio Heart sounds: S1 normal heart sound present and S2 normal heart sound present GI Palpation (GI): Soft to palpation and nontender Auscultation: normal bowel sounds General: Yes no CVA tenderness Back/Spine/Pelvis Back: no CVA tenderness Skin Other: Erythematous rash around waist below the bra line, and upper arms General skin exam: elasticity normal and turgor normal Neuro General: patient oriented x3 and gait normal Cranial nerves: Yes Equal, round and reactive pupils present Speech: No Abnormal speech present Sensory Exam: No Sensory deficit (Neuro) Coordination: tandem gait normal and Romberg test negative Extrem General: Yes normal exam except as noted and No edema Assessment and Plan Assessment & Plan (1) Encounter for general adult medical examination with abnormal findings: Code(s): Z00.01 - Encounter for general adult medical examination with abnormal findings (2) Pruritus: Code(s): L29.9 - Pruritus, unspecified (3) Hypertension, essential: Code(s): I10 - Essential (primary) hypertension (4) Lipid disorder: Code(s): E78.9 - Disorder of lipoprotein metabolism, unspecified (5) Impaired fasting blood sugar: Code(s): R73.01 - Impaired fasting glucose (6) LFT elevation: Code(s): R79.89 - Other specified abnormal findings of blood chemistry Plan Patient is a 58-year-old female came in for physical exam Blood pressure is slightly elevated, however at home it is running around 120 systolic patient tells me She is taking both of her medication regularly and tolerating them She has developed pruritus for the past few days around her waist and arms Patient also complaining of slight nasal congestion for the past few days No nausea vomiting abdominal pain I have sent a hydroxyzine to be taken at night If rash gets worse patient is to let me know Lab order placed to be done fasting She is trying to lose weight and has lost some She declined to do mammogram, Pap smear or colonoscopy Patient will return in 6 months for follow-up appointment, labs are needed every 6 months. Orders: Orders Comprehensive Hanna. Panel Fast Today E78.9 - Disorder of lipoprotein metabolism, unspecified, I10 - Essential (primary) hypertension, R73.01 - Impaired fasting glucose, R79.89 - Other specified abnormal findings of blood chemistry, Z00.01 - Encounter for general adult medical examination with abnormal findings TSH reflex Free T4 Today E78.9 - Disorder of lipoprotein metabolism, unspecified, I10 - Essential (primary) hypertension, R73.01 - Impaired fasting glucose, R79.89 - Other specified abnormal findings of blood chemistry, Z00.01 - Encounter for general adult medical examination with abnormal findings Hemoglobin A1c Today R73.01 - Impaired fasting glucose Comprehensive Hanna. Panel Fast 6 Months E78.9 - Disorder of lipoprotein metabolism, unspecified, I10 - Essential (primary) hypertension, R73.01 - Impaired fasting glucose, R79.89 - Other specified abnormal findings of blood chemistry Lipid Panel 6 Months E78.9 - Disorder of lipoprotein metabolism, unspecified, I10 - Essential (primary) hypertension, R73.01 - Impaired fasting glucose, R79.89 - Other specified abnormal findings of blood chemistry Complete Blood Count Auto Diff Today E78.9 - Disorder of lipoprotein metabolism, unspecified, I10 - Essential (primary) hypertension, R73.01 - Impaired fasting glucose, R79.89 - Other specified abnormal findings of blood chemistry, Z00.01 - Encounter for general adult medical examination with abnormal findings Lipid Panel Today E78.9 - Disorder of lipoprotein metabolism, unspecified, I10 - Essential (primary) hypertension, R73.01 - Impaired fasting glucose, R79.89 - Other specified abnormal findings of blood chemistry, Z00.01 - Encounter for general adult medical examination with abnormal findings Vitamin D 25-OH (D2 and D3) Today E78.9 - Disorder of lipoprotein metabolism, unspecified, I10 - Essential (primary) hypertension, R73.01 - Impaired fasting glucose, R79.89 - Other specified abnormal findings of blood chemistry, Z00.01 - Encounter for general adult medical examination with abnormal findings Hemoglobin A1c 6 Months E78.9 - Disorder of lipoprotein metabolism, unspecified, I10 - Essential (primary) hypertension, R73.01 - Impaired fasting glucose, R79.89 - Other specified abnormal findings of blood chemistry Complete Blood Count Auto Diff 6 Months E78.9 - Disorder of lipoprotein metabolism, unspecified, I10 - Essential (primary) hypertension, R73.01 - Impaired fasting glucose, R79.89 - Other specified abnormal findings of blood chemistry Medications: New hydroxyzine HCl 25 mg PO BEDTIME 30 tabs 0RF Itching Coding Level of Care Code Est Pt Level 3 (18358) Est Pt Prev Care 40-64y(58895) Diagnoses Encounter for general adult medical examination with abnormal findings Z00.01 Pruritus L29.9 Hypertension, essential I10 Lipid disorder E78.9 Impaired fasting blood sugar R73.01 LFT elevation R79.89 Additional Codes EULA-7 Assessment Billing - EULA-7 Assessment Tool: EULA-7 Assessment 56515 ([id number])
[2024-02-17 15:31] VITALS: BP 138/90; PULSE 77; O2SAT 98; BMI 31.8
== END 2024-02-17 15:55 | disposition home or self-care (01) ==
PROVIDERS: PCP Internal Medicine; Visit Provider Internal Medicine
DX: Z00.00 Encounter for general adult medical examination without abnormal findings (principal); L29.9 Pruritus, unspecified; I10 Essential (primary) hypertension; E78.9 Disorder of lipoprotein metabolism, unspecified; R73.01 Impaired fasting glucose; R79.89 Other specified abnormal findings of blood chemistry

== ENCOUNTER → 2024-02-17 15:02 | Outpatient (BNVA) | payer BC, SELFPAY | PROVIDERS: PCP Internal Medicine; Visit Provider Internal Medicine | DX: Z00.01 Encounter for general adult medical examination with abnormal findings (principal); L29.9 Pruritus, unspecified; I10 Essential (primary) hypertension; E78.9 Disorder of lipoprotein metabolism, unspecified; R73.01 Impaired fasting glucose; R79.89 Other specified abnormal findings of blood chemistry | CPT/HCPCS: 96127 ==